=== PATIENT | female | born 1980 | race Caucasian/White ===

== ENCOUNTER 2021-06-06 14:18 | Emergency (ER) | payer BC ==
[~2021-06-06] VITALS: Ht 165.1 cm; Wt 81.6 kg
--- NOTE | 2021-06-06 14:22 | NUR ---
PATIENT STATES SHE IS "HAVING AN ALLERGIC REACTION". STATES SHE HAD "ALLERGY INJECTIONS TODAY AT 1PM" AND HAS SINCE DEVELOPED HIVES AND FEELS HER "THROAT IS CLOSING". WE PLACED AN IV, GAVE EPINEPHRINE SQ AND PLACED HER ON A MONITOR.
[2021-06-06] MEDS ORDERED: EPINEPHRINE 1 MG/1 ML AMP SQ ONE (14:30)
[2021-06-06] MEDS ORDERED: methylPREDNISolone SOD SUCC 125 MG/2 ML VIAL IV ONE (14:30)
[2021-06-06] MEDS ORDERED: FAMOTIDINE. 20 MG/2 ML VIAL IV ONE ×2 (14:30→14:38)
[2021-06-06] MEDS ORDERED: IV NORMAL SALINE 1000 ML BAG IV ONE (14:30)
[2021-06-06] MEDS ORDERED: ALBUTEROL SULFATE 2.5 MG/3 ML NEBU NEB ONE (14:30)
[2021-06-06] MEDS ORDERED: diphenhydrAMINE 50 MG/1 ML VIAL IV ONE ×2 (14:30)
[2021-06-06] MEDS ORDERED: methylPREDNISolone SOD SUCC 125 MG/2 ML VIAL ONE (14:35)
[2021-06-06] MEDS ORDERED: diphenhydrAMINE 50 MG/1 ML VIAL ONE (14:37)
[2021-06-06] MEDS ORDERED: ALBUTEROL SULFATE 2.5 MG/3 ML NEBU ONE (14:37)
[2021-06-06] MEDS ORDERED: ALBUTEROL SULFATE 2.5 MG/ 0.5 ML NEBU ONE (14:37)
[2021-06-06] MEDS ORDERED: DIPH25TA62 PO ×2 (15:12→16:20)
[2021-06-06] MEDS ORDERED: EPIN0.3P3 IM ×2 (15:12→16:20)
[2021-06-06] MEDS ORDERED: PRED20TA PO ×2 (15:12→16:20)
[2021-06-06] MEDS ORDERED: FAMO-132 PO ×2 (15:12→16:20)
--- NOTE | 2021-06-06 15:26 | NUR ---
PATIENT STATES SHE FEELS MUCH BETTER
--- NOTE | 2021-06-06 16:28 | NUR ---
DC and follow up instructions given and explained to patient who states he understands all instructions. Instructed patient that Benadryl makes you feel sleepy and to not drive today.
--- NOTE | 2021-06-06 16:30 | NUR ---
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
--- NOTE | 2021-06-06 16:30 | NUR ---
IV removed. Catheter intact and site benign. Pressure and 4x4 gauze applied to site. No bleeding noted.
[2021-06-06 16:31] VITALS: BP 122/74
== END 2021-06-06 16:31 | disposition home or self-care (01) ==
LOC: ER 14:18
DX: T78.2XXA Anaphylactic shock, unspecified, initial encounter (principal); T78.40XA Allergy, unspecified, initial encounter; L50.9 Urticaria, unspecified; R06.2 Wheezing; I10 Essential (primary) hypertension; E78.5 Hyperlipidemia, unspecified; Z79.899 Other long term (current) drug therapy; Y92.89 Other specified places as the place of occurrence of the external cause
CPT/HCPCS: 94640; 96361; 96372; 96374; 96375; 99291; J1200; J2930; J3490; A4663; J7030